=== PATIENT | female | born 1955 | race American Indian/Alaskan Native ===

== ENCOUNTER 2017-04-28 07:31 | Emergency (ER) | payer OTHER ==
[2017-04-28 08:10] VITALS: BMI 29.7
--- NOTE | 2017-04-28 08:22 | ED PDOC ---
Arrival/HPI - General Chief Complaint: Cough, Cold, Congestion Time Seen by Provider: 04/28/17 07:32 Historian: Patient - History of Present Illness Narrative History of Present Illness (Text): 04/28/17 07:40 Taty Yun is a 61 year old female, whose past medical history includes seasonal allergies, who presents to the emergency department complaining of worsening, persistent coughs for the past two weeks. Patient describes that her throat feels "scratchy" and experiences associated chest and throat congestion. 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 Patient denies any fevers, shortness of breath, strep throat, difficulty swallowing, ear pain, or any other complaint at this time. PMD: Dr. Forde Time/Duration: < week (2 weeks) Symptom Onset: Gradual Symptom Course: Worsening Severity Level: Mild Activities at Onset: Light Context: Work Past Medical History - Provider Review Nursing Documentation Reviewed: Yes - Reproductive Menopause: Yes - Cardiac Hx Hypertension: Yes - Psychiatric Hx Substance Use: No - Surgical History Hx Section: Yes Family/Social History - Physician Review Nursing Documentation Reviewed: Yes Family/Social History: No Known Family HX Smoking Status: Never Smoked Hx Alcohol Use: No Hx Substance Use: No Allergies/Home Meds Allergies/Adverse Reactions: Allergies No Known Allergies Allergy (Verified 04/28/17 07:38) Home Medications: Home Meds Medication Instructions Recorded Confirmed Losartan/Hydrochlorothiazide 1 tab PO DAILY 04/28/17 04/28/17 [Losartan-Hctz 50-12.5 mg Tab] Review of Systems - Review of Systems Constitutional: absent: Fatigue, Fevers, Night Sweats Eyes: absent: Vision Changes ENT: Voice Changes, Sore Throat, Rhinorrhea, Sinus Congestion. absent: Hearing Changes, Epistaxis Respiratory: Cough. absent: SOB, Sputum, Wheezing Cardiovascular: absent: Chest Pain, BUENO Gastrointestinal: absent: Abdominal Pain, Appetite Changes Genitourinary Female: absent: Urine Output Changes Musculoskeletal: absent: Back Pain Skin: absent: Rash Neurological: absent: Headache, Focal Weakness Endocrine: absent: Diaphoresis Hemo/Lymphatic: absent: Adenopathy Psychiatric: absent: Anxiety Physical Exam - Physical Exam Narrative Physical Exam (Text): Head: Atraumatic. Normocephalic. Eyes: PERRL. EOMI. Conjunctivae are not pale. ENT: Mucous membranes are moist and intact. Oropharynx is clear and symmetric. Mild pharyngeal erythema. No uvular deviation. No exudates. TMs clear bilaterally. No purulent nasal discharge. No facial swelling. No tongue pain. No drooling. No increased secretions. No stridor. Neck: Supple. Full ROM. No JVD. No lymphadenopathy. No meningeal signs. Cardiovascular: Regular rate. Regular rhythm. Distal pulses intact. Pulmonary/Chest: No evidence of respiratory distress. Clear to auscultation bilaterally. No wheezing, rales or rhonchi. Extremities: No edema. No calf tenderness. Skin: Skin is warm and dry. No petechiae. No purpura. Neurological: Alert, awake, and oriented to person, place, time, and situation. Normal speech. No facial droop. Psychiatric: Good eye contact. Normal interaction, affect, and behavior. 04/28/17 08:53 Vital Signs Reviewed: Yes Vital Signs Temp Pulse Resp BP Pulse Ox 04/28/17 07:36 97.8 F 81 18 147/90 99 Temperature: Afebrile Blood Pressure: Normal Pulse: Regular Respiratory Rate: Normal Appearance: Positive for: Well-Appearing, Non-Toxic, Comfortable Pain Distress: None Mental Status: Positive for: Alert and Oriented X 3 Medical Decision Making ED Course and Treatment: 04/28/17 07:40 Impression: 61 year old female complaining of persistent cough for two weeks, sore throat for one week. Differential Diagnosis included but are not limited to: Pnemonia vs Bronchitis vs. Pharyngitis Plan: -- Chest X-ray -- Rapid strep test -- Reassess and disposition Progress Notes: Patient on exam is speaking without difficulty, no fever, no weight loss or night sweats. No hypoxia or wheezing noted. Denies pain or discomfort. No difficulty swallowing or handling secretions. No stridor. No angioedema. Given length of time of cough, chest xray ordered. CXR unremarkable for acute infiltrate. I discussed with her limitations of imaging studies and need for follow-up if cough persists. Currently in no respiratory distress, instructions given. 04/28/17 08:54 - Lab Interpretations Lab Results: Lab Results 04/28/17 07:50: Grp A Beta Strep Ag Negative - RAD Interpretation Radiology Orders: 04/28/17 07:45 CHEST TWO VIEWS (PA/LAT) [RAD] Stat - Scribe Statement The provider has reviewed the documentation as recorded by the Premaibimani Brooks Provider Scribe Attestation: All medical record entries made by the Scribe were at my direction and personally dictated by me. I have reviewed the chart and agree that the record accurately reflects my personal performance of the history, physical exam, medical decision making, and the department course for this patient. I have also personally directed, reviewed, and agree with the discharge instructions and disposition. Disposition/Present on Arrival - Present on Arrival Any Indicators Present on Arrival: No History of DVT/PE: No History of Uncontrolled Diabetes: No Urinary Catheter: No History of Decub. Ulcer: No History Surgical Site Infection Following: None - Disposition Have Diagnosis and Disposition been Completed?: Yes Diagnosis: Bronchitis, Cough, Pharyngitis Disposition: HOME/ ROUTINE Disposition Time: 08:00 Patient Plan: Discharge Patient Problems: Current Active Problems Problem Status Onset Bronchitis Acute Cough Acute Pharyngitis Acute Condition: GOOD Discharge Instructions (ExitCare): Pharyngitis (ED), Acute Bronchitis (ED) Additional Instructions: If your cough is persistent after medication you must get rechecked by your primary care doctor for re-evaluation. For any sweats, fevers, chest pain or shortness of breath, wheezing, coughing/spitting blood, unexplained weight loss , facial swelling, difficulty swallowing, drooling, persistent or worsening of any symptoms, get rechecked. Follow-up with your primary care doctor in 1-2 days. Prescriptions: Azithromycin [Zithromax] 250 mg PO DAILY #6 tab Referrals: Maddy Forde MD [Primary Care Provider] - Follow up with primary
[2017-04-28 08:55] VITALS: BP 147/82; PULSE 76; RESP 20; TEMP 98; O2SAT 98
--- NOTE | 2017-04-28 14:19 | RAD ---
HISTORY: cough for two weeks COMPARISON: No prior. TECHNIQUE: Chest PA and lateral FINDINGS: LUNGS: No active pulmonary disease. PLEURA: No significant pleural effusion identified. No pneumothorax apparent. CARDIOVASCULAR: Normal. OSSEOUS STRUCTURES: No significant abnormalities. VISUALIZED UPPER ABDOMEN: Normal. OTHER FINDINGS: None. IMPRESSION: No active disease.
== END 2017-04-28 08:56 | disposition home or self-care (01) ==
LOC: ED 07:31
DX: R05 Cough (principal); J40 Bronchitis, not specified as acute or chronic; J02.9 Acute pharyngitis, unspecified